=== PATIENT | male | born 1955 | race Caucasian/White ===

== ENCOUNTER 2017-01-09 23:35 | Emergency (ER) | payer OTHER ==
[~2017-01-09] VITALS: Ht 182.9 cm; Wt 86.2 kg
[~2017-01-09 23:35] MED LIST: NEBI5TAB2 PO
[2017-01-09 23:50] VITALS: BP 96/60
[2017-01-10 00:30] LABS: Basophils # (auto) 0 uL; Basophils % (auto) 0.5 % (0.0-2.0); Eosinophils # (auto) 0.2 uL; Eosinophils % (auto) 2.8 % (0.0-7.0); Hematocrit 40.9 % (41.0-53.0); Hemoglobin 13.9 g/dL (13.5-17.5); Lymphocytes # (auto) 1.7 uL; Lymphocytes % (auto) 19.5 % (10.0-50.0); Mean Corpuscular Hemoglobin 32.5 pg (28.0-32.0); Mean Corpuscular Hgb Conc. 33.9 g/dL (32.0-36.0); Mean Platelet Volume 7.9 fL (7.4-10.4); Monocytes # (auto) 0.6 uL; Monocytes % (auto) 6.5 % (0.0-12.0); Neutrophils # (auto) 6.1 uL; Neutrophils % (auto) 70.7 % (37.0-80.0); Platelet Count (auto) 359 10^3/uL (140-450); White Blood Cell 8.7 10^3/uL (4.4-10.8)
[2017-01-10 00:47] LABS: Partial Thromboplastin Time 25.3 sec (22.64-33.71)
[2017-01-10 00:53] LABS: Albumin 3.1 g/dL (3.4-5.0); Anion Gap 14 (5-15); Aspartate Aminotransferase 12 U/L (15-37); BUN/Creatinine Ratio 12.2; Blood Urea Nitrogen 20 mg/dL (7-18); Calcium 7.9 mg/dL (8.5-10.1); Carbon Dioxide 19 mmol/L (21-32); Chloride 110 mmol/L (98-107); GFR African American 55 mL/min; GFR Non-African American 45 mL/min; Glucose 130 mg/dL (74-106); Magnesium 2.2 mg/dL (1.6-2.6); Sodium 143 mmol/L (136-145)
[2017-01-10 00:56] LABS: INR 1.17 (0.9-1.15); Prothrombin Time 12.8 sec (9.37-12.3)
[2017-01-10 00:58] LABS: Alkaline Phosphatase 110 U/L (45-117); Bilirubin, Total 0.3 mg/dL (0.2-1.0); Total Protein 6.8 g/dL (6.4-8.2)
== END 2017-01-10 01:14 | disposition left against medical advice (07) ==
LOC: ER 23:35 → EDBD 23:35 → ER 01-10 01:14
DX: R06.02 Shortness of breath (principal); R06.2 Wheezing; Z53.21 Procedure and treatment not carried out due to patient leaving prior to being seen by health care provider
CPT/HCPCS: 36415; 80053; 83735; 84484; 85025; 85610; 85730; 93005

== ENCOUNTER 2020-08-01 14:58 | Inpatient (IN) | payer OTHER ==
[~2020-08-01] VITALS: Ht 185.4 cm; Wt 72.5 kg
[~2020-08-01 14:58] MED LIST changes: +AML5T PO; +ASPI81CH43 PO; +ATOR20TA50 PO; +CLOP75TA28 PO; +TAMS1CAP25 PO
[2020-08-01] MEDS ORDERED: ASPirin 325 MG TAB PO ONE (16:30)
[2020-08-01] MEDS ORDERED: ATORVASTATIN 20 MG TAB PO ONE (17:30)
[2020-08-01] MEDS ORDERED: MORPHINE SULF INJ 2 MG/ML SYRINGE 1ML IV PRN ×2 (18:15)
[2020-08-01] MEDS ORDERED: ACETAMINOPHEN 500 MG TAB PO PRN (18:15)
[2020-08-01] MEDS ORDERED: NITROGLYCERIN 0.4 MG SL TAB SL PRN (18:15)
[2020-08-01] MEDS ORDERED: HYDROcodone-ACET 5/325MG TAB PO PRN (18:15)
[2020-08-01] MEDS ORDERED: ONDANSETRON HCL 4 MG/2 ML VIAL IV PRN (18:15)
[2020-08-01 18:57] LABS: Basophils # (auto) 0 10 ^3/uL (0-0.2); Basophils % (auto) 0.2 % (0.0-2.0); Eosinophils # (auto) 0 10 ^3/uL (0-0.8); Eosinophils % (auto) 0.4 % (0.0-7.0); Hematocrit 48.5 % (41.0-53.0); Hemoglobin 16.6 g/dL (13.5-17.5); Lymphocytes # (auto) 1.1 10 ^3/uL (0.4-5.4); Lymphocytes % (auto) 9.6 % (10.0-50.0); Mean Corpuscular Hemoglobin 33.3 pg (28.0-32.0); Mean Corpuscular Hgb Conc. 34.2 g/dL (32.0-36.0); Mean Corpuscular Volume 97.3 fL (80.0-100.0); Monocytes % (auto) 8.6 % (0.0-12.0); Neutrophils # (auto) 9.5 10 ^3/uL (1.6-8.6); Neutrophils % (auto) 81.2 % (37.0-80.0); Platelet Count (auto) 388 10^3/uL (140-450); Red Blood Cells 4.98 10^6/uL (4.5-5.90); Red Cell Distribution Width 14.3 % (11.8-14.3); White Blood Cell 11.6 10^3/uL (4.4-10.8)
[2020-08-01 19:10] LABS: INR 1.18 (0.9-1.15)
[2020-08-01 19:15] LABS: Calcium 9.3 mg/dL (8.5-10.1); Chloride 101 mmol/L (98-107); Potassium 4.7 mmol/L (3.5-5.1); Sodium 135 mmol/L (136-145)
[2020-08-01 19:18] LABS: Albumin 4.1 g/dL (3.4-5.0); Anion Gap 8 (5-15); Blood Urea Nitrogen 20 mg/dL (7-18); Carbon Dioxide 26 mmol/L (21-32); GFR African American 69 mL/min; GFR Non-African American 57 mL/min; Glucose 110 mg/dL (74-106); Magnesium 2.4 mg/dL (1.6-2.6)
[2020-08-01 19:24] LABS: Alanine Aminotransferase 21 U/L (16-61); Alkaline Phosphatase 110 U/L (45-117); Aspartate Aminotransferase 12 U/L (15-37); Bilirubin, Total 1.3 mg/dL (0.2-1.0); Total Protein 8.4 g/dL (6.4-8.2)
[2020-08-01] MEDS ORDERED: LORazepam 2MG/ML-1ML VIAL IV PRN (20:30)
[2020-08-02] MEDS: CLOPIDOGREL BISULFATE 75 MG TAB PO SCH (08:46)
[2020-08-02] MEDS: ASPirin-EC 81 mg tab PO SCH (10:09)
[2020-08-02] MEDS: FAMOTIDINE 20 MG TAB PO SCH (10:09)
[2020-08-02] MEDS ORDERED: LORazepam 2MG/ML-1ML VIAL IV ONE (11:00)
[2020-08-02] MEDS: TAMSULOSIN HYDROCHLORIDE 0.4 MG CAP PO SCH (18:17)
[2020-08-02] MEDS: ATORVASTATIN 20 MG TAB PO SCH (23:11)
[2020-08-03 01:29] LABS: Urine Bacteria NONE SEEN /hpf (None Seen); Urine Blood Negative /uL (Negative); Urine Hyaline Cast FEW /lpf (0 - 2); Urine Mucus FEW (None Seen); Urine Specific Gravity 1.018 (1.001-1.035); Urine WBC 2 /hpf (0 - 3)
[2020-08-03 01:39] LABS: Alcohol, Urine < 3.0 mg/dL (0-10); Amphetamine Screen, Urine POSITIVE (NEGATIVE); Benzodiazephine Screen, Urine NEGATIVE (NEGATIVE); Cannabinoid Screen, Urine NEGATIVE (NEGATIVE); Cocaine Screen, Urine NEGATIVE (NEGATIVE); Opiate Scree,Urine POSITIVE (NEGATIVE); Phencyclidine Screen, Urine NEGATIVE (NEGATIVE)
[2020-08-03 01:48] LABS: Barbiturate Scree,Urine NEGATIVE (NEGATIVE)
[2020-08-03] MEDS: FAMOTIDINE 20 MG TAB PO SCH (10:00)
[2020-08-03] MEDS: CLOPIDOGREL BISULFATE 75 MG TAB PO SCH (10:00)
[2020-08-03] MEDS: ASPirin-EC 81 mg tab PO SCH (10:00)
[2020-08-03] MEDS ORDERED: fentaNYL CITRATE 100 MCG/2 ML VL ONE (10:12)
[2020-08-03] MEDS ORDERED: diphenhdrAMINE HCL 50 MG/1 ML VL ONE (10:12)
[2020-08-03] MEDS ORDERED: MIDAZOLAM HCL 1MG/1ML-2 ML VIAL ONE (10:13)
[2020-08-03] MEDS ORDERED: LIDOCAINE VISCOUS 2% 15ML UD ONE (10:13)
[2020-08-03] MEDS: TAMSULOSIN HYDROCHLORIDE 0.4 MG CAP PO SCH (18:39)
[2020-08-03 21:00] VITALS: BP 112/83
[2020-08-03] MEDS: ATORVASTATIN 20 MG TAB PO SCH (22:11)
[2020-08-04 05:30] VITALS: BP 125/71
[2020-08-04] MEDS ORDERED: CHOL20007 PO (05:49)
[2020-08-04 09:00] VITALS: BP 134/89
[2020-08-04] MEDS ORDERED: ATO40T PO (09:02)
[2020-08-04] MEDS ORDERED: ASPI81CH43 PO (09:02)
[2020-08-04] MEDS ORDERED: CLOP75TA28 PO (09:02)
[2020-08-04] MEDS: FAMOTIDINE 20 MG TAB PO SCH (09:36)
[2020-08-04] MEDS: CLOPIDOGREL BISULFATE 75 MG TAB PO SCH (09:37)
[2020-08-04 10:46] VITALS: BP 134/89
[2020-08-04 13:00] VITALS: BP 113/55
== END 2020-08-04 13:13 | disposition home health service (06) | DRG 65 ==
LOC: ER 14:58 → TELE 18:07 → TELE-CENTR 08-03 20:35
PROVIDERS: ADMIT Nurse Practitioner Acute Care; ATTEND Internal Medicine
PROC: B246ZZ4 Ultrasonography of Right and Left Heart, Transesophageal (ICD-10-PCS; principal; 2020-08-03)
DX: I63.511 Cerebral infarction due to unspecified occlusion or stenosis of right middle cerebral artery (principal); R41.4 Neurologic neglect syndrome; N40.0 Benign prostatic hyperplasia without lower urinary tract symptoms; E11.9 Type 2 diabetes mellitus without complications; I10 Essential (primary) hypertension; E78.5 Hyperlipidemia, unspecified; H53.462 Homonymous bilateral field defects, left side; J32.0 Chronic maxillary sinusitis; R23.3 Spontaneous ecchymoses; Z20.828 Contact with and (suspected) exposure to other viral communicable diseases; F17.210 Nicotine dependence, cigarettes, uncomplicated; I25.2 Old myocardial infarction; Z79.02 Long term (current) use of antithrombotics/antiplatelets; Z79.82 Long term (current) use of aspirin; Z79.899 Other long term (current) drug therapy; Z86.73 Personal history of transient ischemic attack (TIA), and cerebral infarction without residual deficits; Z82.3 Family history of stroke; Z88.0 Allergy status to penicillin
CPT/HCPCS: 36415; 70450; 70551; 71045; 80053; 80307; 81001; 83735; 84484; 85025; 85610; 87426; 93306; 93312; 93886; 97163; 99152; G0378; J2250; J2405

== ENCOUNTER 2020-08-24 09:41 | Inpatient (IN) | payer OTHER ==
[~2020-08-24] VITALS: Ht 185.4 cm; Wt 77.1 kg
[~2020-08-24 09:41] MED LIST changes: +ATO40T PO; -ATOR20TA50 PO; +CHOL20007 PO
[2020-08-24] MEDS ORDERED: SODIUM CHLORIDE 0.9% 1,000 ML IVB ONE (10:15)
[2020-08-24 10:44] LABS: Basophils # (auto) 0 10 ^3/uL (0-0.2); Basophils % (auto) 0.2 % (0.0-2.0); Eosinophils # (auto) 0.2 10 ^3/uL (0-0.8); Eosinophils % (auto) 1.3 % (0.0-7.0); Hematocrit 43.6 % (41.0-53.0); Hemoglobin 14.9 g/dL (13.5-17.5); Lymphocytes # (auto) 0.9 10 ^3/uL (0.4-5.4); Lymphocytes % (auto) 5.3 % (10.0-50.0); Mean Corpuscular Hemoglobin 32.7 pg (28.0-32.0); Mean Corpuscular Volume 96.1 fL (80.0-100.0); Monocytes % (auto) 6.2 % (0.0-12.0); Neutrophils # (auto) 14.3 10 ^3/uL (1.6-8.6); Platelet Count (auto) 331 10^3/uL (140-450); Red Blood Cells 4.54 10^6/uL (4.5-5.90); White Blood Cell 16.4 10^3/uL (4.4-10.8)
[2020-08-24 11:00] LABS: INR 1.17 (0.9-1.15); Partial Thromboplastin Time 22.9 sec (23.0-31.2)
[2020-08-24 11:03] LABS: Alanine Aminotransferase 28 U/L (16-61); Albumin 3.9 g/dL (3.4-5.0); Anion Gap 4 (5-15); Blood Alcohol < 3.0 mg/dL (0-5); Blood Urea Nitrogen 35 mg/dL (7-18); Calcium 9.1 mg/dL (8.5-10.1); Carbon Dioxide 26 mmol/L (21-32); Chloride 110 mmol/L (98-107); Glucose 96 mg/dL (74-106); Magnesium 2.6 mg/dL (1.6-2.6); Potassium 3.9 mmol/L (3.5-5.1); Sodium 140 mmol/L (136-145)
[2020-08-24 11:06] LABS: Lactic Acid w/Reflex 2.7 mmol/L (0.4-2.0)
[2020-08-24 11:08] LABS: Alkaline Phosphatase 105 U/L (45-117); Aspartate Aminotransferase 25 U/L (15-37); BUN/Creatinine Ratio 21.5; Bilirubin, Total 0.9 mg/dL (0.2-1.0); GFR African American 55 mL/min; GFR Non-African American 45 mL/min; Total Protein 7.8 g/dL (6.4-8.2)
[2020-08-24 11:59] LABS: Urine Bacteria NONE SEEN /hpf (None Seen); Urine Blood 2+ /uL (Negative); Urine Hyaline Cast FEW /lpf (0 - 2); Urine Mucus FEW (None Seen); Urine Specific Gravity 1.025 (1.001-1.035); Urine WBC 13 /hpf (0 - 3)
[2020-08-24 12:20] LABS: Barbiturate Scree,Urine NEGATIVE (NEGATIVE); Benzodiazephine Screen, Urine POSITIVE (NEGATIVE); Cannabinoid Screen, Urine NEGATIVE (NEGATIVE); Cocaine Screen, Urine NEGATIVE (NEGATIVE)
[2020-08-24] MEDS ORDERED: cefTRIAXone 1GM/50ML D5W 50 ML IV ONE (12:30)
[2020-08-24 12:34] LABS: Amphetamine Screen, Urine POSITIVE (NEGATIVE); Opiate Scree,Urine NEGATIVE (NEGATIVE); Phencyclidine Screen, Urine NEGATIVE (NEGATIVE)
[2020-08-24] MEDS ORDERED: LORazepam 2MG/ML-1ML VIAL IV ONE (13:00)
[2020-08-24] MEDS ORDERED: MORPHINE SULF INJ 2 MG/ML SYRINGE 1ML IV PRN ×3 (13:15→14:30)
[2020-08-24] MEDS ORDERED: LORazepam 2MG/ML-1ML VIAL IV PRN ×2 (13:15→20:45)
[2020-08-24] MEDS ORDERED: NITROGLYCERIN 0.4 MG SL TAB SL PRN ×2 (13:15→14:30)
[2020-08-24] MEDS ORDERED: DEXTROSE (50%) 50ML SYRG IV ONE (13:30)
[2020-08-24] MEDS ORDERED: THIAMINE 100mg/ml INJ (200mg/2ml VIAL) IV ONE (13:30)
[2020-08-24] MEDS ORDERED: FOLIC ACID 1 MG in D5W 5% 50 ML INJ ONE (13:30)
[2020-08-24] MEDS ORDERED: LACTATED RINGER'S 1,000 ML IV ONE (13:30)
[2020-08-24] MEDS ORDERED: CHOL500023 PO (14:15)
[2020-08-24] MEDS ORDERED: ATOR20TA50 PO (14:15)
[2020-08-24] MEDS ORDERED: MIRT1TAB38 PO (14:16)
[2020-08-24 14:21] LABS: Acetaminophen < 2.0 ug/mL (10-30); Salicylate < 1.7 mg/dL (2.8-20.0)
[2020-08-24] MEDS ORDERED: ONDANSETRON HCL 4 MG/2 ML VIAL IV PRN (14:30)
[2020-08-24] MEDS ORDERED: ALUM & MAG HYDROX-SIMETH LIQ(MAALOX) 30 ML PO PRN (14:30)
[2020-08-24] MEDS ORDERED: DOCUSATE SOD 100 MG CAP PO PRN (14:30)
[2020-08-24] MEDS: SODIUM CHLORIDE 0.9% 1,000 ML IV SCH (14:30)
[2020-08-24] MEDS ORDERED: hydrALAZINE HCL 20 MG/ML VL IV PRN (14:45)
[2020-08-24 15:01] LABS: Cholesterol 164 mg/dL (< 200); HDL Cholesterol 54 mg/dL (40-59); LDL Cholesterol 100 mg/dL (< 100); Triglycerides 113 mg/dL (< 150)
[2020-08-24] MEDS: LORazepam 2MG/ML-1ML VIAL IV PRN (18:28)
[2020-08-24] MEDS ORDERED: HALOPERIDOL LACTATE 5 MG/ML INJ VIAL IM PRN (20:45)
[2020-08-24] MEDS: TAMSULOSIN HYDROCHLORIDE 0.4 MG CAP PO SCH (22:00)
[2020-08-24] MEDS: AZTREONAM 1GM INJ 1 GM in D5W 5% 50 ML IV SCH (22:00)
[2020-08-24] MEDS: CLINDAMYCIN 600MG IV 50 ML IV SCH (22:00)
[2020-08-25 03:29] VITALS: BP 137/99
[2020-08-25] MEDS: LORazepam 2MG/ML-1ML VIAL IV PRN (04:03)
[2020-08-25] MEDS: AZTREONAM 1GM INJ 1 GM in D5W 5% 50 ML IV SCH (06:00)
[2020-08-25 06:01] LABS: Basophils # (auto) 0.1 10 ^3/uL (0-0.2); Basophils % (auto) 0.7 % (0.0-2.0); Eosinophils # (auto) 0.1 10 ^3/uL (0-0.8); Eosinophils % (auto) 1.2 % (0.0-7.0); Hematocrit 42.8 % (41.0-53.0); Lymphocytes % (auto) 25.7 % (10.0-50.0); Mean Corpuscular Volume 94.1 fL (80.0-100.0); Monocytes # (auto) 0.7 10 ^3/uL (0-1.3); Monocytes % (auto) 9.5 % (0.0-12.0); Neutrophils # (auto) 4.8 10 ^3/uL (1.6-8.6); Neutrophils % (auto) 62.9 % (37.0-80.0); Platelet Count (auto) 190 10^3/uL (140-450); Red Blood Cells 4.55 10^6/uL (4.5-5.90); Red Cell Distribution Width 13.7 % (11.8-14.3); White Blood Cell 7.6 10^3/uL (4.4-10.8)
[2020-08-25] MEDS: CLINDAMYCIN 600MG IV 50 ML IV SCH (06:10)
[2020-08-25 06:22] LABS: INR 1.02 (0.9-1.15); Partial Thromboplastin Time 25.7 sec (23.0-31.2)
[2020-08-25 06:33] LABS: Potassium 4.3 mmol/L (3.5-5.1)
[2020-08-25 06:41] LABS: Albumin 3.4 g/dL (3.4-5.0); BUN/Creatinine Ratio 14.6; Bilirubin, Total 1.2 mg/dL (0.2-1.0); Calcium 8.4 mg/dL (8.5-10.1); Magnesium 2.2 mg/dL (1.6-2.6); Phosphorus 3.1 mg/dL (2.5-4.90); Total Protein 6.8 g/dL (6.4-8.2)
[2020-08-25] MEDS: SODIUM CHLORIDE 0.9% 1,000 ML IV SCH ×2 (07:10→23:57)
[2020-08-25 08:00] VITALS: BP 109/71
[2020-08-25] MEDS: CHOLECALCIFEROL (VITD3) 2,000 UNIT CAP PO SCH (10:00)
[2020-08-25] MEDS ORDERED: LORazepam 2MG/ML-1ML VIAL IV PRN (13:15)
[2020-08-25] MEDS ORDERED: levoFLOXacin 500MG 100 ML IV SCH (13:15)
[2020-08-25 16:00] VITALS: BP 125/80
[2020-08-25] MEDS: TAMSULOSIN HYDROCHLORIDE 0.4 MG CAP PO SCH (18:00)
[2020-08-25] MEDS: levoFLOXacin 500MG 100 ML IV SCH (18:13)
[2020-08-25 22:00] VITALS: BP 117/75
[2020-08-25] MEDS ORDERED: ATORVASTATIN 20 MG TAB PO SCH (22:00)
[2020-08-26 05:00] VITALS: BP 113/76
[2020-08-26 06:13] VITALS: BP 127/80
[2020-08-26 08:00] VITALS: BP 144/84
[2020-08-26] MEDS: levoFLOXacin 500MG 100 ML IV SCH (09:20)
[2020-08-26] MEDS: CHOLECALCIFEROL (VITD3) 2,000 UNIT CAP PO SCH (09:20)
[2020-08-26] MEDS ORDERED: ASPirin-EC 81 mg tab PO SCH (10:00)
[2020-08-26] MEDS ORDERED: CLOPIDOGREL BISULFATE 75 MG TAB PO SCH (10:15)
[2020-08-26 16:00] VITALS: BP 148/90
[2020-08-26] MEDS: SODIUM CHLORIDE 0.9% 1,000 ML IV SCH (16:30)
[2020-08-26] MEDS ORDERED: LEVO-28 PO (17:50)
[2020-08-26 17:54] VITALS: BP 148/90
[2020-08-26] MEDS ORDERED: TAMSULOSIN HYDROCHLORIDE 0.4 MG CAP PO SCH (18:00)
[2020-08-26] MEDS ORDERED: MIRTAZAPINE 30 MG TAB PO SCH (22:00)
== END 2020-08-26 18:37 | disposition hospice, home (50) | DRG 91 ==
LOC: ER 09:41 → EDBD 09:41 → TELE 09:42 → TELE-CENTR 08-25 03:27
PROVIDERS: ADMIT Hospitalist; ATTEND Internal Medicine
DX: G92 Toxic encephalopathy (principal); N17.0 Acute kidney failure with tubular necrosis; J69.0 Pneumonitis due to inhalation of food and vomit; D68.9 Coagulation defect, unspecified; M62.82 Rhabdomyolysis; N39.0 Urinary tract infection, site not specified; Z20.822 Contact with and (suspected) exposure to COVID-19; N18.31 Chronic kidney disease, stage 3a; E11.22 Type 2 diabetes mellitus with diabetic chronic kidney disease; E78.5 Hyperlipidemia, unspecified; F15.229 Other stimulant dependence with intoxication, unspecified; F20.9 Schizophrenia, unspecified; F32.9 Major depressive disorder, single episode, unspecified; N40.0 Benign prostatic hyperplasia without lower urinary tract symptoms; J32.0 Chronic maxillary sinusitis; I67.2 Cerebral atherosclerosis; I12.9 Hypertensive chronic kidney disease with stage 1 through stage 4 chronic kidney disease, or unspecified chronic kidney disease; F17.200 Nicotine dependence, unspecified, uncomplicated; Z88.0 Allergy status to penicillin; I25.2 Old myocardial infarction; Z79.02 Long term (current) use of antithrombotics/antiplatelets; Z79.82 Long term (current) use of aspirin; Z79.899 Other long term (current) drug therapy; Z82.3 Family history of stroke; Z86.73 Personal history of transient ischemic attack (TIA), and cerebral infarction without residual deficits
CPT/HCPCS: 36415; 70450; 70551; 71045; 80053; 80061; 80307; 80320; 80329; 81001; 82550; 83036; 83605; 83735; 84100; 84443; 84484; 85025; 85610; 85730; 87040; 87086; 87426; 93005; 93886; 96361; 96365; 96375; 96376; G0378; J0696; J1956; J3490; J7060

== ENCOUNTER 2020-12-25 21:57 | Emergency (ER) | payer OTHER ==
[~2020-12-25] VITALS: Ht 182.9 cm; Wt 77.1 kg
[~2020-12-25 21:57] MED LIST changes: -ATO40T PO; +ATOR20TA50 PO; -CHOL20007 PO; +CHOL500023 PO; +LEVO-28 PO; +MIRT1TAB38 PO; -NEBI5TAB2 PO
[2020-12-26 00:43] LABS: Basophils # (auto) 0 10 ^3/uL (0-0.2); Basophils % (auto) 0.3 % (0.0-2.0); Eosinophils # (auto) 0.3 10 ^3/uL (0-0.8); Eosinophils % (auto) 4.2 % (0.0-7.0); Hematocrit 40.5 % (41.0-53.0); Hemoglobin 13.8 g/dL (13.5-17.5); Lymphocytes % (auto) 15.6 % (10.0-50.0); Mean Corpuscular Hemoglobin 32.7 pg (28.0-32.0); Mean Corpuscular Hgb Conc. 34.1 g/dL (32.0-36.0); Monocytes # (auto) 0.7 10 ^3/uL (0-1.3); Monocytes % (auto) 11.4 % (0.0-12.0); Neutrophils # (auto) 4.5 10 ^3/uL (1.6-8.6); Neutrophils % (auto) 68.5 % (37.0-80.0); Nucleated Red Blood Cells % 0.1 %; Platelet Count (auto) 351 10^3/uL (140-450); Red Blood Cells 4.22 10^6/uL (4.5-5.90); Red Cell Distribution Width 14.5 % (11.8-14.3); White Blood Cell 6.6 10^3/uL (4.4-10.8)
[2020-12-26 01:03] LABS: Chloride 110 mmol/L (98-107); Potassium 3.8 mmol/L (3.5-5.1); Sodium 141 mmol/L (136-145)
[2020-12-26 01:07] LABS: Alanine Aminotransferase 20 U/L (16-61); Albumin 3.8 g/dL (3.4-5.0); Anion Gap 7 (5-15); Aspartate Aminotransferase 19 U/L (15-37); BUN/Creatinine Ratio 27.7; Blood Urea Nitrogen 28 mg/dL (7-18); Calcium 8.2 mg/dL (8.5-10.1); Carbon Dioxide 24 mmol/L (21-32); GFR African American 95 mL/min; GFR Non-African American 78 mL/min; Glucose 93 mg/dL (74-106); Magnesium 2.4 mg/dL (1.6-2.6)
[2020-12-26 01:12] LABS: Alkaline Phosphatase 110 U/L (45-117); Bilirubin, Total 1.2 mg/dL (0.2-1.0); Total Protein 7.2 g/dL (6.4-8.2)
[2020-12-26 05:01] VITALS: BP 126/79
== END 2020-12-26 11:18 | disposition home or self-care (01) ==
LOC: ER 21:57 → EDBD 21:57 → ER 12-26 11:18
DX: R44.1 Visual hallucinations (principal); R41.82 Altered mental status, unspecified; I10 Essential (primary) hypertension; E78.5 Hyperlipidemia, unspecified; Z86.73 Personal history of transient ischemic attack (TIA), and cerebral infarction without residual deficits; Z20.822 Contact with and (suspected) exposure to COVID-19
CPT/HCPCS: 36415; 70450; 71045; 80053; 80320; 83735; 83880; 84484; 85025; 87426; 93005

== ENCOUNTER 2023-08-22 19:11 | Emergency (ER) | payer OTHER ==
[~2023-08-22] VITALS: Ht 185.4 cm; Wt 80.0 kg
[~2023-08-22 19:11] MED LIST changes: -LEVO-28 PO; +LEVO500T91 PO
[2023-08-22 19:56] LABS: Basophils # (auto) 0.1 10 ^3/uL (0-0.2); Basophils % (auto) 0.6 % (0.0-2.0); Eosinophils # (auto) 0.1 10 ^3/uL (0-0.8); Eosinophils % (auto) 1.1 % (0.0-7.0); Hemoglobin 15.2 g/dL (13.5-17.5); Lymphocytes # (auto) 1.1 10 ^3/uL (0.4-5.4); Lymphocytes % (auto) 9.8 % (10.0-50.0); Mean Corpuscular Hemoglobin 32.9 pg (28.0-32.0); Mean Corpuscular Hgb Conc. 33.9 g/dL (32.0-36.0); Mean Corpuscular Volume 97.2 fL (80.0-100.0); Monocytes # (auto) 0.8 10 ^3/uL (0-1.3); Monocytes % (auto) 6.9 % (0.0-12.0); Neutrophils # (auto) 9.3 10 ^3/uL (1.6-8.6); Neutrophils % (auto) 81.6 % (37.0-80.0); Nucleated Red Blood Cells % 0.1 %; Red Blood Cells 4.63 10^6/uL (4.5-5.90); Red Cell Distribution Width 14.4 % (11.8-14.3); White Blood Cell 11.4 10^3/uL (4.4-10.8)
[2023-08-22 20:13] LABS: Alanine Aminotransferase 14 U/L (7-40); Albumin 4.5 g/dL (3.2-4.8); Alkaline Phosphatase 118 U/L (46-116); Anion Gap 7 (5-15); Aspartate Aminotransferase 18 U/L (13-40); BUN/Creatinine Ratio 7.9 (10.0-20.0); Blood Urea Nitrogen 8 mg/dL (9-23); Calcium 9.4 mg/dL (8.5-10.1); Carbon Dioxide 25 mmol/L (20-30); Chloride 110 mmol/L (98-107); Glucose 101 mg/dL (74-106); Potassium 4.4 mmol/L (3.5-5.1); Sodium 142 mmol/L (136-145)
[2023-08-22 20:14] LABS: Bilirubin, Total 0.5 mg/dL (0.2-1.0); Total Protein 6.9 g/dL (5.7-8.2)
[2023-08-22] MEDS ORDERED: ACETAMINOPHEN 325 MG TAB PO PRN (21:00)
[2023-08-22 22:10] LABS: INR 1.18 (0.9-1.15); Partial Thromboplastin Time 29.7 SEC (24.5-34.5); Prothrombin Time 12.3 sec (9.3-11.8)
[2023-08-22] MEDS ORDERED: IOHEXOL 350 MG/ML 100ML IJ ONE (22:17)
[2023-08-23 00:15] VITALS: PULSE 76; RESP 16; O2SAT 95
[2023-08-23] MEDS ORDERED: ASPirin 325 MG TAB PO ONE (02:30)
[2023-08-23 06:19] VITALS: BP 140/87; PULSE 85; RESP 18; TEMP 98; O2SAT 94
== END 2023-08-23 06:25 | disposition short-term general hospital (02) ==
LOC: EDBD 19:11 → ER 19:21
DX: I63.9 Cerebral infarction, unspecified (principal); R53.1 Weakness; E78.5 Hyperlipidemia, unspecified; J44.9 Chronic obstructive pulmonary disease, unspecified; I12.9 Hypertensive chronic kidney disease with stage 1 through stage 4 chronic kidney disease, or unspecified chronic kidney disease; N18.9 Chronic kidney disease, unspecified; F17.210 Nicotine dependence, cigarettes, uncomplicated
CPT/HCPCS: 36415; 70450; 70496; 71045; 80053; 83605; 83735; 83880; 84484; 85025; 85610; 85730; 86850; 86900; 86901; 87040; 93005; 99291; Q9967

== ENCOUNTER 2024-09-06 09:28 | Emergency (ER) | payer OTHER ==
[~2024-09-06] VITALS: Ht 185.4 cm; Wt 86.3 kg
--- NOTE | 2024-09-06 09:42 | ED.PDOC ---
GI ASSESSMENT HPI Comments 69 year old male BRICE presents to the ED with chief complaint of diarrhea. Patient reports that he has been experiencing diarrhea for the past 3 weeks, however, he started to have black, tarry stools for the past 2 days. Patient relays that he has taken recent Pepto Bismol. EMS states patient has history of dementia. Patient denies any N/V, abdominal pain, fever, chills, dizziness, headache, or dysuria. Chief Complaint: Diarrhea Time Seen by MD: 09:40 Primary Care Provider: FABIOLA Jiménez Notes: Nurses Notes, Ruby Engineer Notes, Medications, Allergies Allergies: Coded Allergies: Penicillins (Verified Allergy, Unknown, 08/09/19) Home Meds Active Scripts Levofloxacin Hemihydrate (LEVOFLOXACIN) 500 Mg Tab, 500 MG PO DAILY, #7 TAB Prov:LORA VUONG MD 08/26/20 Aspirin (Asa) 81 Mg Ch, 81 MG PO DAILY, #30 TAB.CHEW Prov:LORA VUONG MD 08/04/20 Clopidogrel Bisulfate (Plavix) 75 Mg Tab, 75 MG PO DAILY, #30 TAB Prov:LORA VUONG MD 08/04/20 Reported Medications Mirtazapine (Mirtazapine Oral Disintegrating Tablet) 15 Mg Tab, 1 TAB PO QPM, #30 TAB 3 Refills 08/24/20 Atorvastatin Calcium (ATORVASTATIN CALCIUM) 20 Mg Tab, 1 TAB PO DAILY, #30 TAB 5 Refills 08/24/20 Cholecalciferol (VITAMIN D3) 5,000 Unit Tab, 5000 UNIT PO DAILY, TAB 08/24/20 Amlodipine Besylate (NORVASC TABLET) 5 Mg Tb, 1 TAB PO DAILY, #30 TAB 5 Refills 08/09/19 Tamsulosin HCl (Tamsulosin Hydrochloride) 0.4 Mg Cap, 0.4 MG PO HS, CAP 08/09/19 Information Source: Patient, Emergency Med Personnel Mode of Arrival: EMS Timing: Weeks Duration: Since onset Prehospital treatment: None Quality: None Vomitus: None Stool: Tarry, Black Severity: Moderate Recent: None Recent Hx of: None Associated sign and symptoms: Diarrhea, Melena Past Medical History PAST MEDICAL HISTORY: CVA, Dementia, High Lipids, HTN, TIA Surgical History: Tonsillectomy Family History Family History: Reviewed,noncontributory to illness, Unobtainable Social History Smoker: Unobtainable Alcohol: Unobtainable Drugs: Unobtainable Lives In: Home Constitutional: denies: chills, diaphoresis, fatigue, fever, malaise, sweats, weakness, others EENTM: denies: blurred vision, double vision, ear bleeding, ear discharge, ear drainage, ear pain, ear ringing, eye pain, eye redness, hearing loss, mouth pain, mouth swelling, nasal discharge, nose bleeding, nose congestion, nose pain, photophobia, tearing, throat pain, throat swelling, voice changes, others Respiratory: denies: cough, hemoptysis, orthopnea, SOB at rest, shortness of breath, SOB with excertion, stridor, wheezing, others Cardiovascular: denies: chest pain, dizzy spells, diaphoresis, Dyspnea on exertion, edema, irregular heart beat, left arm pain, lightheadedness, palpitations, PND, syncope, others Gastrointestinal: reports: diarrhea, melena; denies: abdomen distended, abdominal pain, blood streaked bowels, constipated, dysphagia, difficulty swallowing, hematemesis, nausea, poor appetite, poor fluid intake, rectal bleeding, rectal pain, vomiting, others Genitourinary: denies: burning, dysuria, flank pain, frequency, hematuria, incontinence, penile discharge, penile sore, pain, testicle pain, testicle swelling, urgency, others Neurological: denies: dizziness, fainting, headache, left sided numbness, left sided weakness, numbness, paresthesia, pre-existing deficit, right sided numbness, right sided weakness, seizure, speech problems, tingling, tremors, weakness, others Musculoskeletal: denies: back pain, gout, joint pain, joint swelling, muscle pain, muscle stiffness, neck pain, others Integumetry: denies: bruises, change in color, change in hair/nails, dryness, laceration, lesions, lumps, rash, wounds, others Allergic/Immunocompromised: denies: Difficulty Healing, Frequent Infections, Hives, Itching, others Hematologic/Lymphatic: denies: anemia, blood clots, easy bleeding, easy bruising, swollen glands, others Endocrine: denies: excessive hunger, excessive sweating, excessive thirst, excessive urination, flushing, intolerance to cold, intolerance to heat, unexplained weight gain, unexplained weight loss, others Psychiatric: denies: anxiety, bipolar disorder, depression, hopeless, panic disorder, schizophrenia, sleepless, suicidal, others All Other Systems: Reviewed and Negative Physical Exam General Appearance: Moderate Distress, Normal HEENT: Normal ENT Inspection, PERRL/EOMI Neck: Full Range of Motion, Non-Tender, Normal, Normal Inspection Respiratory: Chest Non-Tender, Lungs Clear, No Accessory Muscle Use, No Respiratory Distress, Normal Breath Sounds Cardiovascular: No Edema, No JVD, No Murmur, No Gallop, Normal Peripheral Pulses, Regular Rate/Rhythm Breast Exam: Deferred Gastrointestinal: No Organomegaly, Non Tender, No Pulsatile Mass, Normal Bowel Sounds, Soft Genitalia: Deferred Pelvic: Deferred Rectal: Deferred Extremities: No calf tenderness, Normal capillary refill, Normal inspection, Normal range of motion, Non-tender, No pedal edema Musculoskeletal : Apperance: Normal Neurologic: Alert, silver steward II-XII nml as Tested, No Motor Deficits, Normal Affect, Normal Mood, No Sensory Deficits Cerebellar Function: NOT DONE Reflexes: NOT DONE Skin: Dry, Normal Color, Warm Peripheral Pulses: 3+ Radial (R), 3+ Radial (L) Lymphatic: No Adenopathy Was a procedure done? Was a procedure done?: No GI differential Dx Differential Diagnosis: Constipation, Diverticular disease, Esophagitis, Gastritis/PUD, Gastroenteritis X-Ray, Labs, Meds, VS Vital Signs Date Time Temp Pulse Resp B/P (MAP) Pulse Ox O2 Delivery O2 Flow Rate FiO2 09/06/24 11:05 98.6 73 20 118/72 (87) 98 98.6 09/06/24 09:28 98.5 74 16 128/70 (89) 96 Lab Test 09/06/24 10:11 09/06/24 10:10 Range/Units White Blood Count 6.1 4.4-10.8 10^3/uL Red Blood Count 4.33 L 4.5-5.90 10^6/uL Hemoglobin 14.4 13.5-17.5 g/dL Hematocrit 42.5 41.0-53.0 % Mean Corpuscular Volume 98.2 80.0-100.0 fL Mean Corpuscular Hemoglobin 33.2 H 28.0-32.0 pg Mean Corpuscular Hemoglobin Concent 33.8 32.0-36.0 g/dL Red Cell Distribution Width 14.8 H 11.8-14.3 % Platelet Count 294 140-450 10^3/uL Mean Platelet Volume 7.8 6.9-10.8 fL Neutrophils (%) (Auto) 73.1 37.0-80.0 % Lymphocytes (%) (Auto) 17.7 10.0-50.0 % Monocytes (%) (Auto) 8.6 0.0-12.0 % Eosinophils (%) (Auto) 0.3 0.0-7.0 % Basophils (%) (Auto) 0.3 0.0-2.0 % Neutrophils # (Auto) 4.5 1.6-8.6 10 ^3/uL Lymphocytes # (Auto) 1.1 0.4-5.4 10 ^3/uL Monocytes # (Auto) 0.5 0-1.3 10 ^3/uL Eosinophils # (Auto) 0 0-0.8 10 ^3/uL Basophils # (Auto) 0 0-0.2 10 ^3/uL Nucleated Red Blood Cells 0.1 % Sodium Level 141 136-145 mmol/L Potassium Level 3.6 3.5-5.1 mmol/L Chloride Level 110 H 98-107 mmol/L Carbon Dioxide Level 25 20-31 mmol/L Anion Gap 6 5-15 Blood Urea Nitrogen 13 9-23 mg/dL Creatinine 1.09 0.700-1.30 mg/dL Glomerular Filtration Rate Calc 73 >90 mL/min BUN/Creatinine Ratio 11.9 10.0-20.0 Serum Glucose 101 74-106 mg/dL Calcium Level 9.3 8.7-10.4 mg/dL Urine Color Light-yellow Yellow Urine Clarity Clear Clear Urine pH 5.5 5.0-9.0 Urine Specific Harris 1.014 1.001-1.035 Urine Protein Negative Negative Urine Ketones Negative Negative Urine Blood Negative Negative /uL Urine Nitrite Negative Negative Urine Bilirubin Negative Negative Urine Urobilinogen Normal Negative mg/dL Urine Leukocyte Esterase Negative Negative /uL Urine RBC <1 0 - 3 /hpf Urine Microscopic WBC 2 0-3 /HPF Urine Squamous Epithelial Cells Few <5 /hpf Urine Bacteria None seen None Seen /hpf Urine Glucose Normal Normal mg/dL Current Medications Medications (Trade) Dose Ordered Sig/Shana Route Start Time Stop Time Status Last Admin Sodium Chloride 1,000 ml @ 1,000 mls/hr Q1H ONCE IV 09/06/24 09:45 09/06/24 10:44 DC 09/06/24 09:52 Patient alert. Complaining of having black tarry stools. Vitals stable. Answering all questions. History of dementia. Establish intravenous access. Was given fluids. GI consultation. Hemoglobin within normal limits. Possibly will need colonoscopy. Explained to the patient. Continue cardiac monitoring. Time of 1ST Reevaluation: 10:40 Reevaluation 1ST: Unchanged Patient Education/Counseling: Diagnosis, Treatment Family Education/Counseling: No Family Present Departure 1 Departure Time of Disposition: 11:38 Impression: Primary Impression: GI bleed Qualified Codes: K92.2 - Gastrointestinal hemorrhage, unspecified Additional Impression: Chronic kidney disease, stage III (moderate) Qualified Codes: N18.30 - Chronic kidney disease, stage 3 unspecified Disposition: ADMITTED INPATIENT Admit to: Med Surg Condition: Guarded Critical Care Note Critical Care Time?: No Stability Stability form required: No Heart Score Heart Score: Heart Score Response (Comments) Value History N/A 0 EKG N/A 0 Age N/A 0 Risk Factors N/A 0 Troponin N/A 0 Total 0 I personally scribed for NAY LOPEZ MD ([email or web address]) on 09/06/24 at 09:42. Electronically submitted by Grant Goodson ([email or web address]). NAY LOPEZ MD Sep 06, 2024 09:42
[2024-09-06] MEDS: SODIUM CHLORIDE 0.9% 1,000 ML IV ONE (09:52)
[2024-09-06 10:35] LABS: Basophils # (auto) 0 10 ^3/uL (0-0.2); Basophils % (auto) 0.3 % (0.0-2.0); Eosinophils # (auto) 0 10 ^3/uL (0-0.8); Eosinophils % (auto) 0.3 % (0.0-7.0); Hematocrit 42.5 % (41.0-53.0); Hemoglobin 14.4 g/dL (13.5-17.5); Lymphocytes # (auto) 1.1 10 ^3/uL (0.4-5.4); Lymphocytes % (auto) 17.7 % (10.0-50.0); Mean Corpuscular Hemoglobin 33.2 pg (28.0-32.0); Mean Corpuscular Hgb Conc. 33.8 g/dL (32.0-36.0); Mean Corpuscular Volume 98.2 fL (80.0-100.0); Monocytes # (auto) 0.5 10 ^3/uL (0-1.3); Monocytes % (auto) 8.6 % (0.0-12.0); Neutrophils # (auto) 4.5 10 ^3/uL (1.6-8.6); Neutrophils % (auto) 73.1 % (37.0-80.0); Nucleated Red Blood Cells % 0.1 %; Platelet Count (auto) 294 10^3/uL (140-450); Red Blood Cells 4.33 10^6/uL (4.5-5.90); Red Cell Distribution Width 14.8 % (11.8-14.3); White Blood Cell 6.1 10^3/uL (4.4-10.8)
[2024-09-06 10:45] LABS: Potassium 3.6 mmol/L (3.5-5.1); Sodium 141 mmol/L (136-145)
[2024-09-06 10:46] LABS: Anion Gap 6 (5-15); Carbon Dioxide 25 mmol/L (20-31)
[2024-09-06 10:47] LABS: Calcium 9.3 mg/dL (8.7-10.4)
[2024-09-06 10:49] LABS: Urine Bacteria None Seen /hpf (None Seen)
[2024-09-06 10:51] LABS: BUN/Creatinine Ratio 11.9 (10.0-20.0); Blood Urea Nitrogen 13 mg/dL (9-23); Glucose 101 mg/dL (74-106)
[2024-09-06 10:53] LABS: Chloride 110 mmol/L (98-107)
[2024-09-06 11:03] LABS: Urine Blood Negative /uL (Negative); Urine Clarity Clear (Clear); Urine Color Light-Yellow (Yellow); Urine Protein, UAD Negative (Negative); Urine Specific Gravity 1.014 (1.001-1.035); Urine Squamous Epithelial Cell FEW /hpf (<5); Urine Urobilinogen Normal (Negative); Urine WBC 2 /HPF (0-3); Urine pH 5.5 (5.0-9.0)
[2024-09-06 12:54] VITALS: PULSE 87; RESP 22; O2SAT 98
[2024-09-06 15:09] VITALS: BP 133/82; PULSE 88; RESP 20; TEMP 98.8; O2SAT 98
== END 2024-09-06 18:14 | disposition left against medical advice (07) ==
LOC: ER 09:28 → EDBD 09:28 → ER 18:14
DX: K92.2 Gastrointestinal hemorrhage, unspecified (principal); I12.9 Hypertensive chronic kidney disease with stage 1 through stage 4 chronic kidney disease, or unspecified chronic kidney disease; N18.30 Chronic kidney disease, stage 3 unspecified; R19.7 Diarrhea, unspecified; Z86.73 Personal history of transient ischemic attack (TIA), and cerebral infarction without residual deficits; F03.90 Unspecified dementia, unspecified severity, without behavioral disturbance, psychotic disturbance, mood disturbance, and anxiety; Z90.89 Acquired absence of other organs; Z88.0 Allergy status to penicillin
CPT/HCPCS: 36415; 80048; 81001; 85025; 96360; 99283; J7030

== ENCOUNTER 2025-05-02 11:03 | Emergency (ER) | payer OTHER ==
[~2025-05-02] VITALS: Ht 180.3 cm; Wt 75.0 kg
[2025-05-02 11:55] VITALS: BP 128/68; PULSE 92; RESP 17; TEMP 97.7; O2SAT 96
[2025-05-02] MEDS ORDERED: BACDST PO (12:06)
--- NOTE | 2025-05-02 12:06 | ED.PDOC ---
History of Present Illness(SKN HPI Comments 69-year-old male presents to the clinic for a wound check Chief Complaint: Wound Check Time Seen by MD: 11:09 Primary Care Provider: FABIOLA Allergies: Coded Allergies: Penicillins (Verified Allergy, Unknown, 08/09/19) Home Meds Active Scripts Sulfamethoxazole W/Trimethopri (Bactrim Ds Tablet) 1 Tab Tb, 1 TAB PO BID for 10 Days, #20 TAB 0 Refills Prov:LOC GARCIA 05/02/25 Levofloxacin Hemihydrate (LEVOFLOXACIN) 500 Mg Tab, 500 MG PO DAILY, #7 TAB Prov:LORA VUONG MD 08/26/20 Aspirin (Asa) 81 Mg Ch, 81 MG PO DAILY, #30 TAB.CHEW Prov:LORA VUONG MD 08/04/20 Clopidogrel Bisulfate (Plavix) 75 Mg Tab, 75 MG PO DAILY, #30 TAB Prov:LORA VUONG MD 08/04/20 Reported Medications Mirtazapine (Mirtazapine Oral Disintegrating Tablet) 15 Mg Tab, 1 TAB PO QPM, #30 TAB 3 Refills 08/24/20 Atorvastatin Calcium (ATORVASTATIN CALCIUM) 20 Mg Tab, 1 TAB PO DAILY, #30 TAB 5 Refills 08/24/20 Cholecalciferol (VITAMIN D3) 5,000 Unit Tab, 5000 UNIT PO DAILY, TAB 08/24/20 Amlodipine Besylate (NORVASC TABLET) 5 Mg Tb, 1 TAB PO DAILY, #30 TAB 5 Refills 08/09/19 Tamsulosin HCl (Tamsulosin Hydrochloride) 0.4 Mg Cap, 0.4 MG PO HS, CAP 08/09/19 Mode of Arrival: Ambulatory Location: Back Past Medical History PAST MEDICAL HISTORY: CVA, Dementia, High Lipids, HTN, TIA Surgical History: Tonsillectomy Family History Family History: Reviewed,noncontributory to illness, Unobtainable Social History Smoker: Unobtainable Alcohol: Unobtainable Drugs: Unobtainable Lives In: Home Constitutional: denies: chills, diaphoresis, fatigue, fever, malaise, sweats, weakness, others EENTM: denies: blurred vision, double vision, ear bleeding, ear discharge, ear drainage, ear pain, ear ringing, eye pain, eye redness, hearing loss, mouth pain, mouth swelling, nasal discharge, nose bleeding, nose congestion, nose pain, photophobia, tearing, throat pain, throat swelling, voice changes, others Respiratory: denies: cough, hemoptysis, orthopnea, SOB at rest, shortness of breath, SOB with excertion, stridor, wheezing, others Cardiovascular: denies: chest pain, dizzy spells, diaphoresis, Dyspnea on exertion, edema, irregular heart beat, left arm pain, lightheadedness, palpitations, PND, syncope, others Gastrointestinal: denies: abdomen distended, abdominal pain, blood streaked bowels, constipated, diarrhea, dysphagia, difficulty swallowing, hematemesis, melena, nausea, poor appetite, poor fluid intake, rectal bleeding, rectal pain, vomiting, others Genitourinary: denies: burning, dysuria, flank pain, frequency, hematuria, incontinence, penile discharge, penile sore, pain, testicle pain, testicle swelling, urgency, others Neurological: denies: dizziness, fainting, headache, left sided numbness, left sided weakness, numbness, paresthesia, pre-existing deficit, right sided numbness, right sided weakness, seizure, speech problems, tingling, tremors, weakness, others Musculoskeletal: denies: back pain, gout, joint pain, joint swelling, muscle pain, muscle stiffness, neck pain, others Integumetry: reports: wounds Allergic/Immunocompromised: denies: Difficulty Healing, Frequent Infections, Hives, Itching, others Hematologic/Lymphatic: denies: anemia, blood clots, easy bleeding, easy bruising, swollen glands, others Endocrine: denies: excessive hunger, excessive sweating, excessive thirst, excessive urination, flushing, intolerance to cold, intolerance to heat, unexplained weight gain, unexplained weight loss, others Psychiatric: denies: anxiety, bipolar disorder, depression, hopeless, panic disorder, schizophrenia, sleepless, suicidal, others All Other Systems: Reviewed and Negative Physical Exam General Appearance: No Apparent Distress, Normal HEENT: Normal ENT Inspection, Pharynx Normal, TMs Normal Neck: Full Range of Motion, Non-Tender, Normal, Normal Inspection Respiratory: Chest Non-Tender, Lungs Clear, No Accessory Muscle Use, No Respiratory Distress, Normal Breath Sounds Cardiovascular: No Edema, No JVD, No Murmur, No Gallop, Normal Peripheral Pulses, Regular Rate/Rhythm Breast Exam: Deferred Gastrointestinal: No Organomegaly, Non Tender, No Pulsatile Mass, Normal Bowel Sounds, Soft Genitalia: Deferred Pelvic: Deferred Rectal: Deferred Extremities: No calf tenderness, Normal capillary refill, Normal inspection, Normal range of motion, Non-tender, No pedal edema Musculoskeletal : Apperance: Normal Neurologic: Alert, center rep II-XII nml as Tested, No Motor Deficits, Normal Affect, Normal Mood, No Sensory Deficits Cerebellar Function: Normal Reflexes: Normal Skin: Dry, Normal Color, Warm, Wounds (Large abscess to the mid upper back with packing, large surrounding area with erythema, patient recently completed oral antibiotics. Patient has erythema has decreased) Lymphatic: No Adenopathy Was a procedure done? Was a procedure done?: Yes Sedation Sedation?: No Informed consent obtained: Yes Other Procedure Procedure wound care Informed consent obtained: Yes Notes Approximately 12 in of packing removed from abscess. Abscess irrigated with 50 mL of normal saline and repacked with approximately 12 in of iodoform wound c overed with nonadhesive dressing and paper tape applied around the edges. Differential Diagnosis (INTG) Differential Diagnosis: Cellulitis, Laceration, Puncture Wound Differential Diagnosis: Abscess Differential Diagnosis: Cellulitis Abscess: Abscess, Cellulitis Differential Diagnosis: Cellulitis X-Ray, Labs, Meds, VS Vital Signs Date Time Temp Pulse Resp B/P (MAP) Pulse Ox O2 Delivery O2 Flow Rate FiO2 05/02/25 11:55 92 17 96 Room Air 05/02/25 11:55 97.7 92 17 128/68 (88) 96 97.7 05/02/25 11:05 96.8 91 18 136/65 93 96.8 X-Ray, Labs, Meds, VS Comment On re-evaluation patient has symptomatic improvement. Patient is stable for discharge at this time. All test results and diagnostic imaging have been interpreted. All diagnostic findings, discharge care, and education instruction provided to the patient. Follow-up with PCP in 2-3 days Patient verbalized understanding, discharge instructions and agrees to treatment plan Vital signs are stable Patient is ambulatory Patient advised of which symptoms necessitate a return visit to the emergency r oom. Patient to return emergency room for any new worsening symptoms. Patient is aware that the purpose of this visit is for an acute medical emergency requiring emergent stabilization. Chronic conditions, including malignancies have not been ruled out. Patient is instructed to follow up with PCP as directed for continued care and workup. If unable to arrange follow up, patient is to return to the emergency room for reassessment. Patient was given verbal and written discharge instructions and acknowledges understanding Time of 1ST Reevaluation: 11:40 Reevaluation 1ST: Improved Patient Education/Counseling: Diagnosis, Treatment, Prognosis Family Education/Counseling: Diagnosis, Treatment, Prognosis SEPSIS Sepsis Screen Date sepsis recognized/suspect: May 02, 2025 Time Sepsis recognized/suspect: 1105 Recent Procedure: Yes On Antibiotic Therapy: Yes Respiratory Rate >20: No Heart Rate >90: No Temp<36 C (96.8 F) or >38.3 C: No SBP <90 or MAP <65 mmHG: No New Acute Mental Status Change: No Is the patient on CPAP, BIPAP,: No IV fluid challenge completed?: No Vital Signs Date Time Temp Pulse Resp B/P (MAP) Pulse Ox O2 Delivery O2 Flow Rate FiO2 05/02/25 11:55 92 17 96 Room Air 05/02/25 11:55 97.7 92 17 128/68 (88) 96 97.7 05/02/25 11:05 96.8 91 18 136/65 93 96.8 Departure 1 Departure Time of Disposition: 11:55 Impression: Primary Impression: Abscess of upper back excluding scapular region Disposition: 01 HOME / SELF CARE / HOMELESS Condition: Stable Additional Instructions: Discharge Note: Continue on your medications. Do not drive when taking narcotics. Drink plenty of fluids. Follow up with your primary Dr. Take your prescriptions as ordered. If your condition becomes worse call and follow up with your primary Dr. for instructions or return to the ER if needed. Keep wound clean and dry. Thank you for visiting [facility]. e-Prescriptions Sulfamethoxazole W/Trimethopri (Bactrim Ds Tablet) 1 Tab Tb 1 TAB PO BID for 10 Days, #20 TAB 0 Refills Prov: LOC GARCIA 05/02/25 Discharged With: Self, Friend Critical Care Note Critical Care Time?: No Stability Stability form required: No Heart Score Heart Score: Heart Score Response (Comments) Value History N/A 0 EKG N/A 0 Age N/A 0 Risk Factors N/A 0 Troponin N/A 0 Total 0 [email or web address] May 02, 2025 12:06
== END 2025-05-02 12:15 | disposition home or self-care (01) ==
LOC: ER 11:03
DX: L02.212 Cutaneous abscess of back [any part, except buttock and flank] (principal); I10 Essential (primary) hypertension; F17.200 Nicotine dependence, unspecified, uncomplicated; Z86.73 Personal history of transient ischemic attack (TIA), and cerebral infarction without residual deficits; Z88.0 Allergy status to penicillin; Z90.89 Acquired absence of other organs; Z79.899 Other long term (current) drug therapy